=== PATIENT | male | born 1980 | race Caucasian/White ===

== ENCOUNTER 2017-01-04 16:25 | Emergency (ER) | payer OTHER ==
[~2017-01-04] VITALS: Ht 188 cm; Wt 75.0 kg
[~2017-01-04 16:25] MED LIST: LOV80 SUBQ; MIRT30TA PO; ONDA8TAB10 PO; PANT40TA3 PO; RIVA15TA PO; RIVA20TA PO; WARF5TAB PO
[2017-01-04 16:34] VITALS: BP 126/81; PULSE 95; RESP 20; O2SAT 95
[2017-01-04 17:02] LABS: BASOPHILS % (AUTO) 0.3 % (0-3); EOSINOPHILS % (AUTO) 1.6 % (0-5); MONOCYTES % (AUTO) 6.7 % (4-12); Mean Corpuscular Hemoglobin 30.8 pg (27.0-35.0); NEUTROPHILS % (AUTO) 63.2 % (40-74); Platelet Count 223 bil/L (150-400)
[2017-01-04 17:23] LABS: Magnesium 2.1 mg/dL (1.6-2.6)
--- NOTE | 2017-01-04 17:24 | ED.REPORT ---
HPI-Abd Pain M Under 40 Date of Service Jan 04, 2017 ED Provider: Danyel Cox MD Pt is a 36 year old male with a history of gastric outlet obstruction who presents to the ED complaining of abdominal pain onset 12:00 today. He c/o associated nausea, and vomiting (1x). He denies extremity pain, arm pain, fever , diarrhea and any other symptoms. The pt denies experiencing symptoms previously. He reports decreased appetite secondary from gastric outlet obstruction on . Nursing Notes Stated Complaint: ABD PAIN Chief Complaint: Male Abdominal Pain Nursing Notes Reviewed: Yes (ExtraFootie not reconciled, EMR indicates anticoagulaltion use) Allergies: Coded Allergies: No Known Allergies (Verified Allergy, Unknown, 07/27/15) Scheduled Enoxaparin (Lovenox) 80 Mg/0.8 Ml Syringe 80 MG SUBQ Q12 Mirtazapine (Remeron) 30 Mg Tablet 30 MG PO HS Omeprazole (Omeprazole) 40 Mg Capsule.dr 40 MG PO DAILY Pantoprazole DR (Pantoprazole DR) 40 Mg Tablet.dr 40 MG PO BID Rivaroxaban (Xarelto) 15 Mg Tablet 15 MG PO BIDWM Rivaroxaban (Xarelto) 20 Mg Tablet 20 MG PO DAILYWM Warfarin Sodium (Coumadin) 5 Mg Tablet 5 MG PO DAILY Scheduled PRN Ondansetron ODT (Ondansetron ODT) 8 Mg Tab.rapdis 4-8 MG PO QID PRN PRN For Nausea General Time Seen by MD: 17:21 Chief Complaint Abdominal pain Hx Obtained From: Patient Arrived By: Walk-in Sudden in Onset?: No Onset Occurred: 5 - 8 hours ago Symptom Duration: Since onset Location: : Diffuse Quality: Painful Radiation: : Does not radiate Severity: Current: Moderate Severity: Maximum: Moderate Recent Healthcare: No recent doctor visit, No recent hospitalization Similar Sx Previous: No Past Medical History Past Medical History Notes: Admitted to [facility] from 06/22/2015-07/01/2015 after 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 Grade 2B esophageal ulceration but no evidence of perforation or another acute problem. Past Medical History Pulmonary embolism, off anticoagulation following PE Gastric outlet obstruction Arthritis Past Surgical History Denies: Appendectomy, Cholecystectomy Family History Father - blood clots, PE Smoking History Current Every Day Smoker Social History Alcohol Use: "Social" Drug Use: Meth, THC, Other Other Social History: Good social support, Local resident Occupation homeless for 5 years Ambulatory Status Wheelchair Review of Systems + Decreased appetite Constitutional: Denies: Fever GI: Reports: Abdominal pain, Nausea, Vomiting, Denies: Diarrhea Musculoskeletal: Denies: Extremity pain Complete sys rev & neg: except as marked. Physical Exam Initial Vital Signs Vital Signs (First) Date Time Temp Pulse Resp B/P Pulse Ox O2 Delivery O2 Flow Rate FiO2 01/04/17 16:34 36.6 95 20 126/81 95 Room Air Initial VS: Reviewed, Vital signs normal Head / Eyes: Atraumatic, Normocephalic ENT: Mucous membranes moist Neck: Supple, Full range of motion Extremities: Vascular intact, Neuro intact Skin: Warm, Dry, No cyanosis Neurologic: Alert, Oriented, Nonfocal General/Constitutional: Awake, Alert, Not toxic appearing He appears fatigued and cachectic. Respiratory / Chest: Atraumatic, Breath sounds NL, Breath sounds = bilat Cardiovascular: Heart rate NL, Regular rhythm, Heart sounds NL Abdomen: Soft He has periumbilical tenderness without guarding or rebound. Back: Atraumatic, Full range of motion PSYCHIATRIC: He has an odd affect Interpretation & Diagnostics Lab Results Interpretation Result Diagram: 01/04/17 1658 01/04/17 1658 Test 01/04/17 16:58 White Blood Count 10.7th/mm3 (3.8-10.1) Red Blood Count 5.07mil/mm3 (4.40-5.80) Hemoglobin 15.6g/dL (13.8-17.2) Hematocrit 45.1% (41.0-50.0) Mean Corpuscular Volume 89.0fL (81-100) Mean Corpuscular Hemoglobin 30.8pg (27.0-35.0) Mean Corpuscular Hemoglobin Concent 34.6% (32.0-37.0) Red Cell Distribution Width 13.0% (12.3-15.4) Platelet Count 223bil/L (150-400) Neutrophils (%) (Auto) 63.2% (40-74) Lymphocytes (%) (Auto) 28.1% (14-46) Monocytes (%) (Auto) 6.7% (4-12) Eosinophils (%) (Auto) 1.6% (0-5) Basophils (%) (Auto) 0.3% (0-3) Sodium Level 145mEq/L (134-144) Potassium Level 3.8mEq/L (3.5-5.2) Chloride Level 102mEq/L (97-108) Carbon Dioxide Level 28mmol/L (18-29) Blood Urea Nitrogen 16mg/dL (6-20) Creatinine 0.71mg/dL (0.76-1.27) Estimat Glomerular Filtration Rate 135mL/min (>59) Glucose Level 95mg/dL (60-99) Calcium Level 10.0mg/dL (8.5-10.1) Magnesium Level 2.1mg/dL (1.6-2.6) Total Bilirubin 0.6mg/dL (0.0-1.2) Aspartate Amino Transf (AST/SGOT) 23U/L (0-50) Alanine Aminotransferase (ALT/SGPT) 12U/L (0-44) Alkaline Phosphatase 90U/L (25-150) Total Protein 7.7g/dL (6.4-8.4) Albumin 4.7g/dL (3.4-5.0) Lipase 15U/L (13-60) Lab Results Interpretation: CBC normal + CMP normal Lipase normal CT Abd / Pelvis Interpretation IMPRESSION: The patient is 36 years of age, and the prior CT from June 2015 had identified a region of gastric antral mural thickening. This same area is again seen but little if any changed over time. The likelihood of malignancy producing this appearance is considered very low given the long interval. However, inflammatory change such as peptic ulcer disease is a potential alternative cause. Elective endoscopy may be warranted for further evaluation of that area. Bilateral colonic obstipation. No intestinal obstruction or perforation is found. A normal or abnormal appendix could not be located at the right lower quadrant but no secondary CT evidence of acute appendicitis is found. Dictated by: Jonas Zendejas M.D. on 01/04/2017 at 18:33 Approved by: Jonas Zendejas M.D. on 01/04/2017 at 18:37 Study type: Abdominal CT IV contrast Interpretation / Wet Read by: Interpret - Radiologist Re-Eval/Medical Decision Med Decision/Clinical Course This is a 36-year-old male with a history of gastric injury following caustic ingestion last year, also with a history of prior PE but no longer requiring anticoagulation who presents to the emergency department complaining of acute onset abdominal pain today, with vomiting in the emergency department. Reports terrible discomfort, but no fevers, diarrhea, dysuria. I find the patient somewhat difficult to read, is current on affect, and appears uncomfortable-and did have a bowl of emesis in the department. His abdomen has mild periumbilical tenderness without guarding or rebound. IV is established, blood work is being obtained. No CT is being obtained given the clinical evaluation challenges. Patient is being turned over to oncoming provider changes shift for further evaluation following results. Source of Hx: Old records Re-Evaluation/Progress : Time of Eval: 19:54 Patient Status: Condition improved Re-Evaluation/Progress Note: Pt rechecked. Discussed plan for discharge. Pt's family agrees and understands plan. Gave all RTER and follow-up directions. All questions addresssed at this time. Differential Diagnosis: Positive: Acute abdominal pain, Negative: Abscess, Esophageal rupture, Peritonitis, Porphyria, Sickle cell crisis, Unstable angina, Urinary obstruction, Urinary retention Counseled Regarding: Diagnosis, Lab results, Need for follow-up, When/why to return to ED Patient Discharge & Departure Shift Change Sign-Out Patient Care Transferred: Yes Discussed Complaint(s): Yes Laboratory Evaluation: Ordered, not yet done Imaging Studies: Ordered, not yet done Primary Impression: Generalized abdominal pain Additional Impression: Peptic ulcer disease Disposition: Home Discharge Condition All VS Reviewed: Yes Condition: Stable Additional Instructions: Thank you for trusting us with your care today. Your labs, examination, and imaging results were all reassuring. There is no dangerous cause for your symptoms at this time. Please call in the morning to schedule a follow-up appointment with legend maker, Dr. Medley, in 2-3 days for a recheck. Please return to the emergency department if you are having any new or worsening symptoms, such as fever, chills, nausea, shortness of breath, chest pain, lightheadedness, numbness/tingling, or weakness. Dr. Medley, GI Referrals: NOPCP (PCP) Care Transferred to: Dr. Olson Care Transferred at: 18:00 EDSupervising Provider for APC: Chay Olson MD Scribe Attestation Portions of this note were transcribed by Pati Reinoso. I, Dr. Cox personally performed the history, physical exam and medical decision-making; I reviewed and confirmed the accuracy of the information in the transcribed note. Signed by: Felix Thompson, 01/04/17. Portions of this note were transcribed by Christy Sawant. I, Dr. Olson, personally performed the history, physical exam and medical decision-making; I reviewed and confirmed the accuracy of the information in the transcribed note. Signed by: Felix Ny, 01/04/17. Attending Statement Patient was signed out to me by Dr. Danyel Cox pending CT scan. CT scan shows no emergent pathology. Findings consistent with possible peptic ulcer disease. Patient was given a GI cocktail and his symptoms resolved. His labs are unremarkable. He will be placed on a PPI plans to follow up with his primary doctor in GI for possible outpatient endoscopy. Return precautions given. copies to: Danyel Harris MD Jan 04, 2017 17:24 Pati Turk Jan 04, 2017 17:33 Christy Sawant Jan 04, 2017 20:22 Chay Olson MD Jan 04, 2017 22:47
[2017-01-04] MEDS ORDERED: HYDROmorphone 0.5 mg/0.5 mL iSecure Syringe IVPUSH PRN (17:30)
[2017-01-04] MEDS ORDERED: Ondansetron 2 mg/mL 2 mL Inj IVPUSH ONE (17:30)
[2017-01-04] MEDS ORDERED: 0.9% Sodium Chloride 1,000 ML IV ONE (17:30)
--- NOTE | 2017-01-04 18:39 | DRSVH ---
PROCEDURE: CT ABDOMEN AND PELVIS WITH CONTRAST ([id number]) INDICATIONS: Abd pain TECHNIQUE: After the administration of intravenous contrast, 5 mm thick sections acquired from the diaphragm to the symphysis. 5 mm coronal and sagittal reformats were acquired. For radiation dose reduction, the following was used: automated exposure control, adjustment of mA and/or kV according to patient chucho yoon. COMPARISON: [facility], CT, CT ABD PELVIS W CON, 07/01/2015, 22:44. FINDINGS: Image quality: Excellent. ABDOMEN: Lung bases: Lung bases are clear. Heart size is normal. Solid organs: Liver and spleen are normal in size and enhancement. Gallbladder is partially contrac flynn. Biliary system is non dilated. Pancreas enhances normally. No adrenal nodules. Kidneys demon strate normal size and enhancement, without hydronephrosis. Peritoneum and bowel: Bowel loops demonstrate normal wall thickness and caliber. No free fluid or a ir. The stomach is fluid-filled to the degree that some component of distention appears present depe nding on when the patient has last ingested fluid. At the distal aspect of the gastric antrum, as wa s previously the case 07/01/15 there is a region of mural thickening. This does not appear to have wo rsened. There is colonic obstipation bilaterally. Nodes and vessels: No retroperitoneal or mesenteric adenopathy by size criteria. Aorta and inferior vena cava are normal in size. Miscellaneous: No ventral hernias. PELVIS: Genitourinary: Bladder wall thickness is normal. Miscellaneous: No inguinal hernias or adenopathy. Bones: No suspicious bony lesions. No vertebral body compression fractures. IMPRESSION: The patient is 36 years of age, and the prior CT from June 2015 had identified a reg ion of gastric antral mural thickening. This same area is again seen but little if any changed over time. The likelihood of malignancy producing this appearance is considered very low given the long i nterval. However, inflammatory change such as peptic ulcer disease is a potential alternative cause. Elective endoscopy may be warranted for further evaluation of that area. Bilateral colonic obstipation. No intestinal obstruction or perforation is found. A normal or abnor mal appendix could not be located at the right lower quadrant but no secondary CT evidence of acute a ppendicitis is found. Dictated by: Jonas Zendejas M.D. on 01/04/2017 at 18:33 Approved by: Jonas Zendejas M.D. on 01/04/2017 at 18:37
[2017-01-04] MEDS ORDERED: OMEP40CA36 PO (20:26)
[2017-01-04] MEDS ORDERED: LidocaineVisc 2%:Antacid 1:1 10 mL Syringe PO ONE (20:45)
[2017-01-04 21:33] VITALS: BP 122/75; PULSE 82; RESP 20; O2SAT 95
== END 2017-01-04 21:15 | disposition home or self-care (01) ==
LOC: SED 16:25
DX: R10.84 Generalized abdominal pain (principal); K27.9 Peptic ulcer, site unspecified, unspecified as acute or chronic, without hemorrhage or perforation; F17.200 Nicotine dependence, unspecified, uncomplicated; Z98.890 Other specified postprocedural states; Z79.01 Long term (current) use of anticoagulants; Z59.0 Homelessness
CPT/HCPCS: 36415; 74177; 80053; 81002; 83690; 83735; 85025; 96361; 96374; 99285; J2405; J7030; Q9967

== ENCOUNTER 2017-01-08 08:54 | Emergency (ER) | payer OTHER ==
[~2017-01-08] VITALS: Ht 188 cm; Wt 82.5 kg
[~2017-01-08 08:54] MED LIST changes: +OMEP40CA36 PO
[2017-01-08 09:18] VITALS: BP 119/88; PULSE 67; RESP 16; O2SAT 98
--- NOTE | 2017-01-08 09:19 | ED.REPORT ---
HPI-Abd Pain M Under 40 Date of Service Jan 08, 2017 ED Provider: Dr. Nicole The pt is a 36 y/o male with a hx of gastric injury following caustic ingestion in 2016, gastric outlet obstruction, and GERD who presents to the ED complaining of sudden, non-radiating and sharp "10/10" left sided epigastric pain, onset 2 days ago. His pain is exacerbated after eating. In the ED, his pain is "5/10" even after GI cocktail and Zofran. Associated sx include nausea, vomiting, and lack of appetite. He denies passing gas, fever, myalgia, constipation, diarrhea, and dysuria. The pt was seen at the ED 4 days ago for the same complaint. At that time, his CT showed a previous region of gastric antral mural thickening without any recent change, obstipation, and potentially peptic ulcer disease. Nursing Notes Stated Complaint: ABDOMINAL PAIN Chief Complaint: Male Abdominal Pain Nursing Notes Reviewed: Yes Allergies: Coded Allergies: No Known Allergies (Verified Allergy, Unknown, 01/08/17) Scheduled Enoxaparin (Lovenox) 80 Mg/0.8 Ml Syringe 80 MG SUBQ Q12 Famotidine (Pepcid) 40 Mg Tablet 40 MG PO BID Mirtazapine (Remeron) 30 Mg Tablet 30 MG PO HS Omeprazole (Omeprazole) 40 Mg Capsule.dr 40 MG PO DAILY Pantoprazole DR (Pantoprazole DR) 40 Mg Tablet.dr 40 MG PO BID Rivaroxaban (Xarelto) 15 Mg Tablet 15 MG PO BIDWM Rivaroxaban (Xarelto) 20 Mg Tablet 20 MG PO DAILYWM Sucralfate (Carafate) 1 Gm Tablet 1 GM PO QID Warfarin Sodium (Coumadin) 5 Mg Tablet 5 MG PO DAILY Scheduled PRN Ondansetron ODT (Ondansetron ODT) 8 Mg Tab.rapdis 4-8 MG PO QID PRN PRN For Nausea Ondansetron ODT (Zofran ODT) 4 Mg Tablet 4 MG PO Q4H PRN PRN For Nausea Polyethylene Glycol 3350 (Miralax) 17 Gm Powd.pack 17 GM PO DAILY PRN PRN For Constipation General Time Seen by MD: 09:19 Chief Complaint Abdominal pain Hx Obtained From: Patient Arrived By: Walk-in Sudden in Onset?: Yes Onset Occurred: 2 days ago Symptom Duration: Since onset Location: : Epigastric Quality: Painful Radiation: : Does not radiate Severity: Current: Severe Severity: Maximum: Severe Recent Healthcare: Recent doctor visit Similar Sx Previous: Yes Past Medical History Past Medical History Notes: Admitted to [facility] from 06/22/2015-07/01/2015 after 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 Grade 2B esophageal ulceration but no evidence of perforation or another acute problem. Past Medical History Pulmonary embolism, off anticoagulation following PE Gastric outlet obstruction Arthritis GERD Family History Father - blood clots, PE Smoking History Current Every Day Smoker Social History Lives with grandparents Unemployed Alcohol Use: "Social" Drug Use: Meth, THC, Other Other Social History: Good social support, Local resident Ambulatory Status Wheelchair Review of Systems Reports: lack of appetite Denies: passing gas Constitutional: Denies: Fever GI: Reports: Abdominal pain, Nausea, Vomiting, Denies: Constipation, Diarrhea Male: Denies Dysuria Complete sys rev & neg: except as marked. Physical Exam Initial Vital Signs Vital Signs (First) Date Time Temp Pulse Resp B/P Pulse Ox O2 Delivery O2 Flow Rate FiO2 01/08/17 09:18 36.1 67 16 119/88 98 Room Air Initial VS: Reviewed Head / Eyes: Atraumatic, Normocephalic Neck: Supple, Non-tender, Full range of motion Extremities: Vascular intact, Neuro intact, No swelling, No tenderness Skin: Warm, Dry, No cyanosis Neurologic: Alert, Oriented, Nonfocal General/Constitutional: Awake, Alert Distress / Hydration: Positive: Distress mild Respiratory / Chest: Atraumatic, Breath sounds NL, Breath sounds = bilat, No respiratory distress, No rales, No rhonchi, No wheezing Cardiovascular: Heart rate NL, Regular rhythm, Heart sounds NL, No gallop, No murmurs, No rubs Abdomen: Atraumatic, Soft, Non-tender, No guarding, No rebound, BS normoactive Back: Atraumatic, Full range of motion, Painless range of motion Interpretation & Diagnostics Lab Results Interpretation Result Diagram: 01/08/17 0934 01/08/17 0934 Test 01/08/17 09:34 White Blood Count 11.9th/mm3 (3.8-10.1) Red Blood Count 5.32mil/mm3 (4.40-5.80) Hemoglobin 16.2g/dL (13.8-17.2) Hematocrit 47.6% (41.0-50.0) Mean Corpuscular Volume 89.5fL (81-100) Mean Corpuscular Hemoglobin 30.5pg (27.0-35.0) Mean Corpuscular Hemoglobin Concent 34.0% (32.0-37.0) Red Cell Distribution Width 12.6% (12.3-15.4) Platelet Count 242bil/L (150-400) Neutrophils (%) (Auto) 71.8% (40-74) Lymphocytes (%) (Auto) 19.5% (14-46) Monocytes (%) (Auto) 6.5% (4-12) Eosinophils (%) (Auto) 1.7% (0-5) Basophils (%) (Auto) 0.3% (0-3) Sodium Level 143mEq/L (134-144) Potassium Level 3.3mEq/L (3.5-5.2) Chloride Level 97mEq/L (97-108) Carbon Dioxide Level 30mmol/L (18-29) Blood Urea Nitrogen 12mg/dL (6-20) Creatinine 0.88mg/dL (0.76-1.27) Estimat Glomerular Filtration Rate 105mL/min (>59) Glucose Level 129mg/dL (60-99) Calcium Level 9.4mg/dL (8.5-10.1) Magnesium Level 1.9mg/dL (1.6-2.6) Total Bilirubin 0.6mg/dL (0.0-1.2) Aspartate Amino Transf (AST/SGOT) 21U/L (0-50) Alanine Aminotransferase (ALT/SGPT) 12U/L (0-44) Alkaline Phosphatase 94U/L (25-150) Total Protein 7.9g/dL (6.4-8.4) Albumin 4.5g/dL (3.4-5.0) Lipase 21U/L (13-60) X-Ray Abdominal Interpretation IMPRESSION: 1. No bowel obstruction. 2. Negative chest. Dictated by: Ramos Gallegos M.D. on 01/08/2017 at 10:25 Approved by: Ramos Gallegos M.D. on 01/08/2017 at 10:27 Interpretation / Wet Read by: Interpret - Radiologist Re-Eval/Medical Decision Med Decision/Clinical Course Epigastric pain, labs are reassuring x-ray does not show any evidence of obstruction, tolerating oral intake. Likely peptic ulcer disease. Recommend out- patient management and close follow-up with GI. Return and follow-up precautions given Source of Hx: Old records Summary of Info: Reviewed prior ER visit Re-Evaluation/Progress : Time of Eval: 11:50 Re-Evaluation/Progress Note: Rechecked pt. Discussed lab results, imaging results, diagnosis and plan to discharge. Pt understands and agrees with the plan. F/U instruction and RTER warning given. All questions addressed Counseled Regarding: Diagnosis, Lab results, Need for follow-up, When/why to return to ED Patient Discharge & Departure Primary Impression: Epigastric pain Disposition: Home Discharge Condition All VS Reviewed: Yes Condition: Stable Patient Instructions: Gastritis (ED) Additional Instructions: Take Pepcid, Carafate, MiraLAX, Zofran and omeprazole for your symptoms. Call the GI doctor today for a follow-up appointment. Establish care with a primary care doctor who can help manage your symptoms Return to the ER for persistent vomiting, lethargy, high fever or other concerns Referrals: Chantale Medley MD, Tiffany L PAC Scribe Attestation Portions of this note were transcribed by Mario Wright. I,, personally performed the history,physical exam and medical decision-making;I reviewed and confirmed the accuracy of the information in the transcribed note. Signed by Felix Guillen. 01/08/17 copies to: Chantale Medley MD; Reyna Zuniga Timothy S DO Jan 08, 2017 09:19 Mario Wright Jan 08, 2017 09:59
[2017-01-08] MEDS ORDERED: LidocaineVisc 2%:Antacid 1:1 10 mL Syringe PO ONE (09:30)
[2017-01-08] MEDS ORDERED: Ondansetron 2 mg/mL 2 mL Inj ONE (09:33)
[2017-01-08] MEDS ORDERED: Ondansetron 2 mg/mL 2 mL Inj IVPUSH PRN (09:40)
[2017-01-08] MEDS ORDERED: 0.9% Sodium Chloride 1,000 ML IV ONE (09:40)
[2017-01-08 09:44] LABS: BASOPHILS % (AUTO) 0.3 % (0-3); EOSINOPHILS % (AUTO) 1.7 % (0-5); MONOCYTES % (AUTO) 6.5 % (4-12); Mean Corpuscular Hemoglobin 30.5 pg (27.0-35.0); Mean Corpuscular Volume 89.5 fL (81-100); NEUTROPHILS % (AUTO) 71.8 % (40-74); Platelet Count 242 bil/L (150-400)
[2017-01-08 10:02] LABS: Magnesium 1.9 mg/dL (1.6-2.6)
[2017-01-08] MEDS ORDERED: Famotidine Inj 20 MG in IV Premix 1 EACH IV ONE (10:10)
--- NOTE | 2017-01-08 11:29 | DRSVH ---
PROCEDURE: X-RAY ACUTE ABDOMINAL SERIES ([id number]) INDICATIONS: abd pain, vomiting, TECHNIQUE: One view chest and two views of the abdomen were acquired. COMPARISON: [facility], CT, CT ABD PELVIS W CON, 01/04/2017, 18:14. FINDINGS: Surgical changes and devices: None. Chest: Lungs are clear. Heart size is normal. No pleural effusions. No pneumoperitoneum. Abdomen: Bowel gas pattern is normal. No suspicious calcifications. Small phleboliths are seen wit hin the left hemipelvis. Visualized solid organ contours appear normal. Bones: No suspicious bony lesions. There are mild degenerative changes of the bilateral hips. IMPRESSION: 1. No bowel obstruction. 2. Negative chest. Dictated by: Ramos Gallegos M.D. on 01/08/2017 at 10:25 Approved by: Ramos Gallegos M.D. on 01/08/2017 at 10:27
[2017-01-08 11:51] VITALS: BP 113/72; PULSE 77; RESP 14; O2SAT 97
[2017-01-08] MEDS ORDERED: ONDA4TAB9 PO (11:55)
[2017-01-08] MEDS ORDERED: SUCR1TAB30 PO (11:55)
[2017-01-08] MEDS ORDERED: POLY17PO6 PO (11:55)
[2017-01-08] MEDS ORDERED: FAMO40TA72 PO (11:55)
[2017-01-08 12:05] VITALS: BP 113/72; PULSE 77; RESP 14; O2SAT 97
== END 2017-01-08 12:06 | disposition home or self-care (01) ==
LOC: SED 08:54
DX: R10.13 Epigastric pain (principal); K21.9 Gastro-esophageal reflux disease without esophagitis; F17.200 Nicotine dependence, unspecified, uncomplicated; Z86.73 Personal history of transient ischemic attack (TIA), and cerebral infarction without residual deficits; Z79.01 Long term (current) use of anticoagulants
CPT/HCPCS: 36415; 74022; 80053; 83690; 83735; 85025; 96361; 96374; 96375; 99284; J2405; J3490; J7030